=== PATIENT | male | born 1980 | race Two or more races ===

== ENCOUNTER 2019-12-14 19:42 | Emergency (ER) | payer OTHER ==
[~2019-12-14] VITALS: Ht 172.7 cm; Wt 79.4 kg
--- NOTE | 2019-12-14 20:00 | NUR ---
Patient ambulating with steady gait. A&O x4. c/o LLE pain x4 days. Redness / swelling noted on LLE. Patient able to move BLE digits. Patient was previously seen at [facility] for same reason but went AMA / ELOPED. midline noted on LUE. Patent and flushing well.Patient states he tested positive for COVID 19. Breathing even and unlabored. no cough or SOB noted. Speech is clear and able to make needs known / follow commands. denies any / GI distress
--- NOTE | 2019-12-14 20:10 | NUR ---
Dr. Bahena at bedside for MSE
--- NOTE | 2019-12-14 20:14 | NUR ---
Called [facility], spoke with Ed RN, states patient was admitted on 12/09/21 and went AMA today, [employer] report was made because patient refused to have it taken out, and patient is positive for covid-19. made aware.
[2019-12-14 20:41] LABS: BASOPHILS % (AUTO) 0.3 % (0.0-2.0); EOSINOPHILS % (AUTO) 0.3 % (0.0-7.0); LYMPHOCYTES % (AUTO) 24.3 % (20.5-51.5); MEAN CORPUSCULAR HEMOGLOBIN 25.9 uug (23.8-33.4); MEAN CORPUSCULAR HGB CONC 33 g/dL (32.5-36.3); MEAN CORPUSCULAR VOLUME 77.8 fL (73.0-96.2); MONOCYTES # (AUTO) 0.7 K/uL (2.0-10.0); MONOCYTES % (AUTO) 8.2 % (0.0-11.0); NEUTROPHILS # (AUTO) 5.4 K/uL (1.8-8.9); NEUTROPHILS % (AUTO) 66.9 % (38.5-71.5); PLATELET COUNT (AUTO) 414 K/uL (152-348); RED BLOOD CELL COUNT(AUTO) 4.23 MIL/uL (4.06-5.63); WHITE BLOOD COUNT (AUTO) 8.1 K/uL (3.6-10.2)
[2019-12-14 20:49] LABS: CREATININE 1.2 mg/dL (0.6-1.3); POTASSIUM 3.6 mmol/L (3.5-5.1)
[2019-12-14] MEDS ORDERED: CLINDAMYCIN HCL 150 MG CAPSULE PO ONE (21:15)
[2019-12-14] MEDS ORDERED: CLINDAMYCIN HCL 150 MG CAPSULE ONE (21:20)
--- NOTE | 2019-12-14 21:55 | NUR ---
Note rosa mariajenise in EDM - 12/14/19 at 2220 by BPARENTELA Patient discharged to home in stable condition. Written and verbal after care instructions given. Patient verbalizes understanding of instructions. Stressed follow up or return to ER for worsening s/s. IV removed from RUE. Catheter intact and site benign. Pressure and 4x4 gauze applied to site. No bleeding noted. Patient ambulating with steady gait
--- NOTE | 2019-12-14 21:55 | NUR ---
Patient given written and verbal discharge instructions. Patient verbalizes understanding of instructions. Patient is ambulatory with steady gait. Refuses offer of prison placement. Patient given list of available shelters in surrounding area. IV removed. Catheter intact and site benign. Pressure and 4x4 gauze applied to site. No bleeding noted.
[2019-12-14 22:23] VITALS: BP 114/71
== END 2019-12-14 21:55 | disposition home or self-care (01) ==
LOC: ER 19:45
DX: L03.116 Cellulitis of left lower limb (principal); U07.1 COVID-19; E87.1 Hypo-osmolality and hyponatremia; Z91.19 Patient's noncompliance with other medical treatment and regimen; Z59.0 Homelessness; R00.0 Tachycardia, unspecified; D64.9 Anemia, unspecified
CPT/HCPCS: 36415; 85025; A4663

== ENCOUNTER 2023-03-06 22:37 | Emergency (ER) | payer OTHER ==
[~2023-03-06] VITALS: Ht 172.7 cm; Wt 79.4 kg
[~2023-03-06 22:37] MED LIST: ALPR2TAB2 PO; AMOX-430 PO; HYDR-4209 PO; IBUP-1955 PO
[2023-03-07 00:10] VITALS: O2SAT 97
[2023-03-07] MEDS ORDERED: LORA0.5T48 PO (00:38)
[2023-03-07] MEDS ORDERED: LORAZEPAM 0.5 MG TABLET PO ONE (00:45)
[2023-03-07] MEDS ORDERED: LORAZEPAM 1 MG TABLET ONE (01:11)
--- NOTE | 2023-03-07 01:40 | NUR ---
Administered 1m of ativan tablet. Patient discharged to home in stable condition. Written and verbal after care instructions given. Patient verbalizes understanding of instructions. Stressed follow up or return to ER for worsening s/s. Patient walked out with steady gait.
== END 2023-03-07 01:59 | disposition home or self-care (01) ==
LOC: ER 22:37
DX: F41.8 Other specified anxiety disorders (principal); F17.210 Nicotine dependence, cigarettes, uncomplicated; Z79.1 Long term (current) use of non-steroidal anti-inflammatories (NSAID); Z79.2 Long term (current) use of antibiotics; Z79.899 Other long term (current) drug therapy
CPT/HCPCS: A4663

== ENCOUNTER 2023-03-07 18:30 | Emergency (ER) | payer OTHER ==
[~2023-03-07 18:30] MED LIST changes: +LORA0.5T48 PO
== END 2023-03-07 18:52 | disposition left against medical advice (07) ==
LOC: ER 18:30
DX: Z53.21 Procedure and treatment not carried out due to patient leaving prior to being seen by health care provider (principal)